=== PATIENT | male | born 1955 | race Caucasian/White ===

== ENCOUNTER → 2021-08-01 | Outpatient (CLI) | payer MEDICARE ==
--- NOTE | 2021-08-01 18:32 | Diagnostic Imaging Report ---
INDICATION: Bilateral knee pain. Time of Exam: 1:28 PM 4 views of each knee were obtained. Both knees show severe medial compartmental degenerative change with complete loss of the joint space. Right knee does have a corticated osseous density projected within the lateral compartment which could represent a loose body. There are patellofemoral degenerative changes bilaterally. No fracture, dislocation or effusion is seen. IMPRESSION: Bilateral degenerative changes without acute fracture or dislocation. There may be a loose body within the lateral compartment of the right knee. Dictated by: Dictated on workstation # [id number]
== END ==
LOC: ORTHO 13:57
PROVIDERS: ATTEND Orthopaedic Surgery
DX: M17.0 Bilateral primary osteoarthritis of knee (principal)
CPT/HCPCS: 73564; G0463; 99203

== ENCOUNTER → 2021-08-03 | Outpatient (CLI) | payer MEDICARE | LOC: ORTHO 13:45 | PROVIDERS: ATTEND Orthopaedic Surgery | DX: M17.0 Bilateral primary osteoarthritis of knee (principal) ==

== ENCOUNTER → 2022-01-03 | Outpatient (CLI) | payer MEDICARE | LOC: ORTHO 12:42 | PROVIDERS: ATTEND Orthopaedic Surgery | DX: M17.0 Bilateral primary osteoarthritis of knee (principal); E11.9 Type 2 diabetes mellitus without complications; E78.00 Pure hypercholesterolemia, unspecified; I10 Essential (primary) hypertension ==

== ENCOUNTER → 2022-05-31 | Outpatient (CLI) | payer MEDICARE | LOC: ORTHO 13:12 | PROVIDERS: ATTEND Orthopaedic Surgery | DX: M17.0 Bilateral primary osteoarthritis of knee (principal); E11.9 Type 2 diabetes mellitus without complications; I10 Essential (primary) hypertension; E78.00 Pure hypercholesterolemia, unspecified | CPT/HCPCS: 99213 ==

== ENCOUNTER 2022-08-07 14:18 | Outpatient (CLI) | payer MEDICARE ==
[~2022-08-07] VITALS: Ht 170.2 cm; Wt 120.0 kg
[2022-08-07 14:27] VITALS: BP 141/71
[2022-08-07] MEDS ORDERED: ASPI-999 PO (14:57)
[2022-08-07] MEDS ORDERED: INSU100C3 SQ (14:57)
[2022-08-07] MEDS ORDERED: LISI20TA26 PO (14:57)
[2022-08-07] MEDS ORDERED: ATOR20TA66 PO (14:57)
[2022-08-07] MEDS ORDERED: TURM500T PO (14:57)
[2022-08-07] MEDS ORDERED: HYDR25TA4 PO (14:57)
[2022-08-07] MEDS ORDERED: MAGN400T39 PO (14:57)
[2022-08-07] MEDS ORDERED: AMLO-250 PO (14:57)
[2022-08-07] MEDS ORDERED: INSU100V6 SQ ×2 (14:57)
[2022-08-07] MEDS ORDERED: CARV25TA PO (14:57)
[2022-08-07] MEDS ORDERED: ESCI-2 PO (14:57)
[2022-08-07] MEDS ORDERED: MULT200T14 PO (14:57)
[2022-08-07 16:06] LABS: BASOPHILS # (AUTO) 0.1 10^3/uL (0.0-0.1); BASOPHILS % (AUTO) 1 % (0-10); EOSINOPHILS # (AUTO) 0.6 10^3/uL (0.0-0.3); EOSINOPHILS % (AUTO) 7 % (0-10); HEMATOCRIT 36 % (40-54); HEMOGLOBIN 12.8 g/dL (13.3-17.7); LYMPHOCYTES # (AUTO) 1.3 10^3/uL (1.0-4.0); LYMPHOCYTES % (AUTO) 14 % (12-44); MEAN CORPUSCULAR HEMOGLOBIN 31 pg (25-34); MEAN CORPUSCULAR HGB CONC 36 g/dL (32-36); MEAN CORPUSCULAR VOLUME 86 fL (80-99); MONOCYTES # (AUTO) 0.7 10^3/uL (0.0-1.0); MONOCYTES % (AUTO) 8 % (0-12); NEUTROPHILS # (AUTO) 6.6 10^3/uL (1.8-7.8); NEUTROPHILS % (AUTO) 71 % (42-75); PLATELET COUNT 191 10^3/uL (130-400); WHITE BLOOD COUNT 9.3 10^3/uL (4.3-11.0)
--- NOTE | 2022-08-07 17:34 | Diagnostic Imaging Report ---
EXAMINATION: Chest 2 view HISTORY: PRE OP COMPARISON: None available. FINDINGS: Heart size and pulmonary vasculature are normal. The lungs are clear without consolidation, pleural effusion, or pneumothorax. Degenerative changes of the thoracic spine. Osseous structures are otherwise intact. IMPRESSION: 1. No acute radiographic abnormality in the chest. Dictated by: Dictated on workstation # [id number]
== END 2022-08-09 07:46 ==
LOC: PREOP 14:18
PROVIDERS: ATTEND Orthopaedic Surgery
DX: Z01.818 Encounter for other preprocedural examination (principal); M17.12 Unilateral primary osteoarthritis, left knee
CPT/HCPCS: 36415; 71046; 85025

== ENCOUNTER → 2022-08-07 | Outpatient (CLI) | payer MEDICARE ==
[~2022-08-07] MED LIST: AMLO-250 PO; ASPI-999 PO; ATOR20TA66 PO; CARV25TA PO; ESCI-2 PO; HYDR25TA4 PO; INSU100C3 SQ; INSU100V6 SQ; LISI20TA26 PO; MAGN400T39 PO; MULT200T14 PO; TURM500T PO
--- NOTE | 2022-08-07 17:15 | Diagnostic Imaging Report ---
CT EXTREMITY LOWER LEFT WO TECHNIQUE: Multiple contiguous axial images of the left knee were obtained without the use of intravenous contrast. Sagittal and coronal reformations were then performed. All CT scans use one or more of the following dose optimizing techniques: automated exposure control, MA and/or KvP adjustment based on patient size and exam type, or iterative reconstruction. INDICATION: Left knee pain. Osteoarthritis. COMPARISON: None available. FINDINGS: Pelvis: No incidental osseous or soft tissue abnormality that requires further workup. Knee: Tricompartmental osteoarthritis. No incidental osseous or soft tissue abnormality that requires further workup. Small knee joint effusion. Ankle: Osseous structures are unremarkable. Subcutaneous edema around the ankle. IMPRESSION: Tricompartmental osteoarthritis. Dictated by: Dictated on workstation # [id number]
== END ==
LOC: RAD 13:00
PROVIDERS: ATTEND Orthopaedic Surgery
DX: M17.12 Unilateral primary osteoarthritis, left knee (principal)
CPT/HCPCS: 73700

== ENCOUNTER → 2022-08-07 | Outpatient (CLI) | payer MEDICARE ==
[2022-08-07 17:45] LABS: CALCIUM 8.8 MG/DL (8.5-10.1); CREATININE SERUM 1.44 MG/DL (0.60-1.30); POTASSIUM 4.2 MMOL/L (3.6-5.0)
== END ==
LOC: ORTHO 09:00
PROVIDERS: ATTEND Orthopaedic Surgery
DX: M17.0 Bilateral primary osteoarthritis of knee (principal)
CPT/HCPCS: 36415; 80048

== ENCOUNTER → 2022-08-09 | Outpatient (CLI) | payer MEDICARE ==
[2022-08-09 11:08] LABS: BILIRUBIN,URINE NEGATIVE (NEGATIVE); CLARITY,URINE CLEAR; COLOR,URINE YELLOW; GLUCOSE, URINE (UA) NEGATIVE (NEGATIVE); KETONES,URINE NEGATIVE (NEGATIVE); LEUKOCYTE ESTERASE ,URINE NEGATIVE (NEGATIVE); NITRITE,URINE NEGATIVE (NEGATIVE); PROTEIN,URINE 2+ (NEGATIVE)
[2022-08-09 11:18] LABS: BACTERIA,URINE NEGATIVE /HPF; SQUAMOUS EPITHELIAL CELL,UR RARE /HPF; WBC,URINE RARE /HPF
== END ==
LOC: LAB 10:24
PROVIDERS: ATTEND Orthopaedic Surgery
DX: Z01.89 Encounter for other specified special examinations (principal)
CPT/HCPCS: 81000

== ENCOUNTER 2022-08-13 05:55 | Day surgery (SDC) | payer MEDICARE ==
[~2022-08-13] VITALS: Ht 170 cm; Wt 120.0 kg
[2022-08-13] VITALS (14 sets, daily range): BP systolic 117–208; BP diastolic 61–86
[2022-08-13] MEDS ORDERED: ceFAZolin INJECTION 2,000 MG in NS (IVPB) 50 ML IV ONE (06:15)
[2022-08-13] MEDS: LACTATED RINGERS 1,000 ML IV PRN ×2 (06:37→07:43)
[2022-08-13] MEDS ORDERED: MIDAZOLAM 2 MG/2 ML (VERSED) VIAL ONE (06:44)
[2022-08-13] MEDS ORDERED: BUPIVACAINE 0.5% 30 ML (SENSORCAINE) VIAL ONE (07:00)
[2022-08-13] MEDS ORDERED: ROPIVACAINE 5MG/ML 30ML VIAL ONE (07:01)
[2022-08-13] MEDS ORDERED: PROPOFOL INJECTION 50 ML IV ONE ×2 (07:07→08:29)
--- NOTE | 2022-08-13 07:15 | Progress Note-Pre Operative ---
Pre-Operative Progress Note Date of Available H&P: August 07, 2022 Date H&P Reviewed: August 13, 2022 Time H&P Reviewed: 07:05 History & Physical: H&P Reviewed, Patient Examed, No changes noted Pre-Operative Diagnosis: Left Knee Primary Osteoarthritis EMA ORLANDO MD August 13, 2022 07:15
[2022-08-13] MEDS ORDERED: TRANEXAMIC ACID 100 MG/ML 10 ML INJECTION ONE (08:08)
--- NOTE | 2022-08-13 10:09 | Operative Report - Ortho ---
Operative Report Surgeon (s)/Chicken Tender (s) Surgeon EMA ORLANDO MD Chicken Tender n/a Pre-Operative Diagnosis Left Knee Primary Osteoarthritis Post-Operative Diagnosis same Operative Report Date of Procedure: August 13, 2022 Name of Procedure Performed: Robotic Assisted Left Total Knee Arthroplasty Description & Findings After obtaining informed consent and marking the patient in the preoperative holding area, the patient did receive IV antibiotics. Patient was taken to the operating room and anesthesia was induced. Surgical timeout was taken. The left lower extremity was prepped and draped in the usual sterile fashion. Incision was made and carried down to fascia. Arthrotomy was performed on the medial side of the patella. Patella was retracted laterally and knee was flexed. Found to have circumferential osteophtye around the distal femur as well as exposed bone in the medial compartment. ACL and anterior horns of the menisci were removed. 3.2 mm pins were placed in the medial femoral condyle for the femoral array and checkpoint was placed next to the pins. 3.2 mm pins were placed in the proximal tibia and checkpoint was placed there as well. Arrays were placed and tightened into position. The femur and tibia were then registered. Osteophytes were removed. The knee was then tensioned with varus and valgus stress in extension and flexion. Measurements were captured and adjustments were made to the preoperative plan to balance the flexion and extension gaps at 20 mm. Robotic arm was brought into position and all femoral cuts as well as the tibial cut were performed. Bone blocks were removed. Lamina stock clerk self service store was placed and the remainder of the mensici as well as posterior osteophytes were removed. The knee was trialed with a size 4 femur and a size 4 tibia with a 9 mm poly trial. It was found to come out to full extension and flexed beyond 120 degrees. It was stable to varus and valgus stress throughout its range of motion. This was accepted. Knee was brought out into extension and the patella was measured at less than 20 mm of thickness. Osteophytes were removed from around the perimeter of the patella. Patella tracked well through the trochlear groove of the femur. Lug holes were drilled in the distal femur. Trial implants were removed. Tibial tray was pinned and punched. Tibial press fit guide was placed and holes were drilled. The cut bone surfaces were lavaged with pulsatile normal saline. Implants were opened and assembled on the back table. A size 4 press fit tibial component was impacted into place. A size 4 press fit femoral component was impacted into place. Tibial tray was lavaged with saline. A 9 mm thick polyethylene component was locked into placed and the locking mechanism was checked. Knee was brought into extension. Betadine soak was performed and then, the knee was irrigated with normal saline. The knee was once again trialed; found to come to full extension, flexed beyond 120 degrees, and was stable to varus and valgus stress. Tourniquet was dropped and electrocautery was used for hemostasis. Fascial layer was closed with #2 Stratafix. The subcutaneous layer was closed with 2-0 Vicryl. The skin was closed with 3-0 v-loc. Wound was dressed with steri-strips, xeroform, 4x4s, ABD, webril, and ANNELIESE wrap. Patient tolerated the procedure well and was stable to the recovery room. Anesthesia Type Spinal Estimated Blood Loss 150 mL Specimen(s) collected/removed None EMA ORLANDO MD August 13, 2022 10:09
[2022-08-13] MEDS ORDERED: ONDANSETRON 4 MG/2 ML (SDV) Z0FRAN IVP PRN (10:15)
[2022-08-13] MEDS ORDERED: INSULIN GLARGINE HUM REC ANLOG 50 UNIT SQ SCH (10:15)
[2022-08-13] MEDS ORDERED: morphine INJ 10 MG/ML 1ML (SYR OR VIAL) IVP ONE (10:15)
[2022-08-13] MEDS ORDERED: ACETAMINOPHEN 500 MG TAB (TYLENOL) PO PRN (10:15)
[2022-08-13] MEDS ORDERED: ONDANSETRON 4 MG/2 ML (SDV) Z0FRAN IV PRN (10:15)
[2022-08-13] MEDS ORDERED: INSULIN GLARGINE SQ SCH (10:15)
[2022-08-13] MEDS ORDERED: BISACODYL 5 MG (DULCOLAX) TABLET PO PRN (10:15)
[2022-08-13] MEDS ORDERED: MILK OF MAGNESIA 400 MG/5 ML 30 ML UDC PO PRN (10:15)
--- NOTE | 2022-08-13 11:08 | Diagnostic Imaging Report ---
INDICATION: Left knee arthroplasty AP and lateral views of the left knee are obtained. There has been total left knee arthroplasty. Prosthetic components appear to be in good position. There is no evidence of fracture or malalignment. Gas and fluid is seen in the knee joint. IMPRESSION: No evidence of immediate complication post recent total left knee arthroplasty. Dictated by: Dictated on workstation # [id number]
[2022-08-13] MEDS: NS IV 1000 ML 1,000 ML IV SCH ×2 (11:26→20:54)
--- NOTE | 2022-08-13 11:51 | Consultation ---
CRISTOPHER SRIVASTAVA 08/13/22 1151: HPI History of Present Illness: HPI/Chief Complaint CC: Post LKArthroplasty cares HPI: Pt underwent left knee arthroplasty this morning 2/2 OA. We are consulted for post-op medical management. Pt has no pain accept for some aching and stiffness in post-op knee. He is making urine but has not yet had a BM or flatus. He denies n/v/f/c at this time. He has not yet been cleared to ambulate or eat but has been drinking some water. Otherwise resting comfortably. Source: patient Exam Limitations: no limitations Date Seen 08/13/22 Attending Physician Chirag Beach DO PCP Admitting Physician: Attending Physician: Travis Arrieta MD Referring Physician Date of Admission Home Medications & Allergies Home Medications Reviewed patient Home Medication Reconciliation performed by pharmacy medication reconciliations ski technician and/or nursing. Patients Allergies have been reviewed. Allergies Allergies Coded Allergies No Known Drug Allergies (Unverified08/07/22) Past Ikmehvq-Pthhgp-Hvgmvl Hx Patient Social History Tobacco Use?: No Smoking Status: Never a Smoker Use of E-Cig and/or Vaping dev: No Substance use?: No Alcohol Use?: Yes Alcohol Frequency: Rarely Pt feels they are or have been: No Immunizations Up To Date First/Initial COVID19 Vaccinat: 07/27 Second COVID19 Vaccination Deepak: 08/26 Seasonal Allergies Seasonal Allergies: No Current Status Communicates: Verbally Primary Language: Nigerien Preferred Spoken Language: Nigerien Is interpretation needed?: No Implanted or Applied Medical D: Orthopedic hardware Past Medical History Surgeries: Eye Surgery, Gallbladder Currently Using CPAP: No High Cholesterol, Hypertension Sexually Transmitted Disease: No HIV/AIDS: No Gastroesophageal Reflux, Polyps, Ulcer, Gall Bladder Disease Osteoporosis Diabetes, Insulin dep Cataract Loss of Vision: Denies Hearing Impairment: Denies Anxiety Blood Disorders: No Adverse Reaction/Blood Tranf: No Review of Systems Constitutional: no symptoms reported EENTM: no symptoms reported Respiratory: no symptoms reported Cardiovascular: no symptoms reported Gastrointestinal: no symptoms reported Genitourinary: no symptoms reported Musculoskeletal: no symptoms reported (No sxs other than in post-op knee as noted in HPI), see HPI Skin: no symptoms reported Physical Exam Physical Exam Vital Signs Vital Signs - First Documented 08/13/22 06:10 Temp 36.2 Pulse 62 Resp 18 B/P (MAP) 194/85 (121) Pulse Ox 98 Capillary Refill : Less Than 3 Seconds Height, Weight, BMI Height: '" Weight: lbs. oz. kg; 41.52 BMI Method: General Appearance: No Apparent Distress, WD/WN, Obese Eyes: Bilateral Eye Normal Inspection, Bilateral Eye PERRL HEENT: PERRL/EOMI, Normal ENT Inspection, Pharynx Normal Neck: Full Range of Motion, Normal Inspection, Non Tender, Supple Respiratory: Chest Non Tender, Lungs Clear, Normal Breath Sounds, No Accessory Muscle Use, No Respiratory Distress Cardiovascular: Regular Rate, Rhythm, No Gallop, No Murmur, Normal Peripheral Pulses Gastrointestinal: Normal Bowel Sounds, No Organomegaly, No Pulsatile Mass, Non Tender, Soft Extremity: Normal Capillary Refill, Normal Inspection, Normal Range of Motion, Non Tender, No Calf Tenderness, Pedal Edema (2+ pitting edema BL (pt notes this is chronic)) Neurologic/Psychiatric: Alert, Oriented x3, No Motor/Sensory Deficits, Normal Mood/Affect Skin: Normal Color, Warm/Dry Results Results/Procedures Labs Patient resulted labs reviewed. Assessment/Plan Assessment and Plan Assess & Plan/Chief Complaint Post LKArthroplasty - surgeon to advance diet as appropriate - pain mngmt - PT/OT as indicated by surgery team DM - ISS and accuchecks HTN - resuming home norvasc, carvedilol, hctz, and lisinopril - ctm HLD - resume home statin DVT ppx - SCD's TORRIE HIDALGO DO 08/14/22 0513: Past Knwknfq-Rssliz-Lfwdzd Hx Patient Social History Marrital Status: Review of Systems Constitutional: see HPI Physical Exam Physical Exam General Appearance: Chronically ill, Obese Respiratory: Lungs Clear, Normal Breath Sounds Supervisory-Addendum Brief Verification & Attestation Participated in pt care: history, MDM, physical Personally performed: exam, history, MDM, supervision of care Care discussed with: Medical Student Procedures: n/a Results interpretation: Verified all documentation Verification and Attestation of Medical Student E/M Service A medical student performed and documented this service in my presence. I reviewed and verified all information documented by the medical student and made modifications to such information, when appropriate. I personally performed the physical exam and medical decision making. Torrie Hidalgo, August 14, 2022,05:13 CRISTOPHER SRIVASTAVA August 13, 2022 11:51 TORRIE HIDALGO DO August 14, 2022 05:13
[2022-08-13] MEDS: morphine INJ 4 MG/ML 1 ML (VIAL/SYRINGE) IVP PRN ×5 (11:56→20:52)
[2022-08-13] MEDS ORDERED: hydrALAZINE (APRESOLINE) 25 MG TAB PO PRN (13:15)
[2022-08-13] MEDS ORDERED: amLODIPine 5 MG (NORVASC) TAB PO NR (13:15)
[2022-08-13] MEDS ORDERED: PATIENT MAY USE OWN MEDS, ALL MC SCH (13:30)
--- NOTE | 2022-08-13 13:53 | Physical Therapy Evaluation ---
PT Evaluation-General Medical Diagnosis Admission Date August 13, 2022 Medical Diagnosis: left OA Onset Date: August 13, 2022 Therapy Diagnosis Therapy Diagnosis: debility Precautions Precautions/Isolations: Fall Prevention, Standard Precautions Weight Bear Status Right Lower Extremity: Right Full Weight Bearing Left Lower Extremity: Left Weight Bearing/Tolerated Referral Physician: Meenakshi Reason for Referral: Evaluation/Treatment Medical History Pertinent Medical History: HTN Current History s/p elective left TKR Reviewed History: Yes Social History Home: Single Level Current Living Status: Spouse Entry Into Home: Stairs With Railing PT Steps Into Home: 3 Prior Prior Level of Function SCALE: Activities may be completed with or without assistive devices. 1-Zuqbgtjjrp-xdvrooc completes the activity by him/herself with no assistance from a helper. 5-Set-up or Clean-up Assistance-helper sets up or cleans up; patient completes activity. [place] assists only prior to or following the activity. 4-Supervision or Touching Assistance-helper provides verbal cues and/or touching/steadying and/or contact guard assistance as patient completes activity. Assistance may be provided throughout the activity or intermittently. 3-Partial/Moderate Assistance-helper does LESS THAN HALF the effort. [place] lifts, holds or supports trunk or limbs, but provides less than half the effort. 2-Substantial/Maximal Assistance-helper does MORE THAN HALF the effort. [place] lifts or holds trunk or limbs and provides more than half the effort. 1-Bgvzarrvb-iyryob does ALL the effort. Patient does none of the effort to complete the activity. Or, the assistance of 2 or more helpers is required for the patient to complete the activity. If activity was not attempted, code reason: 7-Patient Refused. 9-Not Applicable-not attempted and the patient did not perform the activity before the current illness, exacerbation or injury. 10-Not Attempted due to Environmental Limitations-(lack of equipment, weather restraints, etc.). 88-Not Attempted due to Medical Conditions or Safety Concerns. Bed Mobility: 6 Transfers (B,C,W/C): 6 Gait: 6 Stairs: 6 Indoor Mobility (Ambulation): Independent Stairs: Independent Prior Devices Use: None PT Evaluation-Current Subjective Patient agrees to PT. Pain Numeric Pain Scale: 5-Moderate Pain Location: Left Location Body Site: Knee Pain Description: Acute Objective Patient Orientation: Normal For Age Attachments: Platt Catheter, Polar Pack, IV ROM/Strength ROM Lower Extremities right LE WFL/left LE 5-80 degrees Strength Lower Extremities right LE 5/5; left LE 4/5 grossly Integumentary/Posture Bowel Incontinence: No Bladder Incontinence: Platt Cath Posture WFL Neuromuscular (Tone, Coordination, Reflexes) grossly intact Sensory Vision: Functional Hearing: Functional Transfers Lying to Sitting/Side of Bed(Q: 4 Sit to Stand (QC): 4 Chair/Irn-ru-Eljoq Xfer(QC): 4 Gait Mode of Locomotion: Walk Anticipated Mode of Locomotion: Walk Walk 10 feet (QC): 4 Walk 50 ft with 2 Turns(QC): 4 Walk 150 ft (QC): 4 Distance: 250' Gait Assistive Device: FWW Comments/Gait Description reciprocal pattern Balance Sitting Static: Normal Sitting Dynamic: Normal Standing Static: Normal Standing Dynamic: Normal Assessment/Needs Patient will benefit from skilled PT to address functional strength and mobility to improve current LOF to safely return to home at maximum LOF. Rehab Potential: Fair PT Custodial Goals Custodial Goals PT Custodial Goals Time Frame: August 18, 2022 Roll Left & Right (QC): 6 Sit to Lying (QC): 6 Lying-Sitting on Side/Bed(QC): 6 Sit to Stand (QC): 6 Chair/Hxr-ar-Qtcro Xfer(QC): 6 Toilet Transfer (QC): 6 Walk 10 feet (QC): 6 Walk 50ft with 2 Turns (QC): 6 Walk 150 ft (QC): 6 1 Step (curb) (QC): 4 4 Steps (QC): 4 Type: Motorized PT Plan Problem List Problem List: Activity Tolerance, Functional Strength, Safety, Balance, Gait, Transfer, Bed Mobility Treatment/Plan Treatment Plan: Continue Plan of Care Treatment Plan: Bed Mobility, Education, Functional Activity Indy, Functional Strength, Gait, Safety, Therapeutic Exercise, Transfers Treatment Duration: August 18, 2022 Frequency: 11 times per week Estimated Hrs Per Day: .5 hour per day Patient and/or Family Agrees t: Yes Time Time In: 1255 Time Out: 1315 DATE: August 13, 2022 Total Billed Treatment Time: 20 Total Billed Treatment 1 visit EVModC 20 min LEELA AWAN PT August 13, 2022 13:53
[2022-08-13] MEDS: LEXAPRO 10 MG PO SCH (13:57)
--- NOTE | 2022-08-13 14:40 | Occupational Therapy Eval ---
OT Evaluation-General/PLF Medical Diagnosis Admission Date Medical Diagnosis: left OA Onset Date: August 13, 2022 Therapy Diagnosis Therapy Diagnosis: weakness Precautions Precautions/Isolations: Fall Prevention, Standard Precautions Weight Bear Status Weight Bearing Restriction: Weight Bearing/Tolerated Location Restriction: L LE Referral Physician: Meenakshi Referral Reason: Evaluation/Treatment Medical History Pertinent Medical History: HTN, OA Current History s/p LTKA Social History Home: Single Level Current Living Status: Spouse Entry Into Home: Stairs With Railing Steps Into Home: 3 ADL-Prior Level of Function SCALE: Activities may be completed with or without assistive devices. 7-Xfeznldnza-xrqztna completes the activity by him/herself with no assistance from a helper. 5-Set-up or Clean-up Assistance-helper sets up or cleans up; patient completes activity. [place] assists only prior to or following the activity. 4-Supervision or Touching Assistance-helper provides verbal cues and/or touching/steadying and/or contact guard assistance as patient completes a ctivity. Assistance may be provided throughout the activity or intermittently. 3-Partial/Moderate Assistance-helper does LESS THAN HALF the effort. [place] lifts, holds or supports trunk or limbs, but provides less than half the effort. 2-Substantial/Maximal Assistance-helper does MORE THAN HALF the effort. [place] lifts or holds trunk or limbs and provides more than half the effort. 9-Sxqtvmgaf-zanpyh does ALL the effort. Patient does none of the effort to complete the activity. Or, the assistance of 2 or more helpers is required for the patient to complete the activity. If activity was not attempted, code reason: 7-Patient Refused. 9-Not Applicable-not attempted and the patient did not perform the activity before the current illness, exacerbation or injury. 10-Not Attempted due to Environmental Limitations-(lack of equipment, weather restraints, etc.). 88-Not Attempted due to Medical Conditions or Safety Concerns. Self Care: Needed Some Help (uses pant legs to lift LES to don socks or does it for him) Functional Cognition: Independent Drive Self: Yes OT Current Status Subjective Reclined in bed w/ polar pack on LLE, agrees to therapy Mental Status/Objective Patient Orientation: Person, Place, Time, Situation Current Upper Extremity ROM BUE ROM WFLS, abdomen restricts forward flexion Upper Extremity Strength BUE +4/5, does not sustain strength w/ activity d/t fair + activity tolerance ADL-Treatment Eating (QC): 6 Oral Hygiene (QC): 5 Shower/Bathe Self (QC): 7 Upper Body Dressing (QC): 5 Lower Body Dressing (QC): 4 On/Off Footwear (QC): 2 Toileting Hygiene (QC): 4 Education OT Patient Education: Correct positioning, Modified ADL techniques, Progress toward Goal/Update tx plan, Purpose of tx/functional activities, Reviewed precautions, Rehab process, Safety issues, Transfer techniques, Use of adapted equipment Teaching Recipient: Patient Teaching Methods: Discussion Response to Teaching: Verbalize Understanding, Reinforcement Needed OT Senior Living Goals Senior Living Goals Eating (QC): 6 Oral Hygiene (QC): 6 Toileting Hygiene (QC): 6 Shower/Bathe Self (QC): 6 Upper Body Dressing (QC): 6 Lower Body Dressing (QC): 6 On/Off Footwear (QC): 6 1=Demonstrate adherence to instructed precautions during ADL tasks. 2=Patient will verbalize/demonstrate understanding of assistive devices/modifications for ADL. 3=Patient will improve strength/tolerance for activity to enable patient to perform ADL's. OT Education/Plan Problem List/Assessment Assessment: Decreased Activ Tolerance, Impaired Self-Care Skills Discharge Recommendations Plan/Recommendations: Continue POC Treatment Plan/Plan of Care Treatment,Training & Education: Yes Patient would benefit from OT for education, treatment and training to promote independence in ADL's, mobility, safety and/or upper extremity function for ADL's. Plan of Care: ADL Retraining, Functional Mobility, Group Exercise/Act as Ind, UE Funct Exercise/Act Treatment Duration: August 18, 2022 Frequency: 3 times per week (3-5 times per week) Estimated Hrs Per Day: .25 hour per day Agreement: Yes Rehab Potential: Fair Time Start Time: 12:55 Stop Time: 14:15 DATE: August 13, 2022 Total Time Billed (hr/min): 20 Billed Treatment Time EVM 20 min LEVI MANDUJANO OT August 13, 2022 14:39
[2022-08-13] MEDS: inSUlin ASPART (NovoLOG) 1 UNIT/0.01 ML (CHARGE PER UNIT) SQ SCH (16:05)
[2022-08-13] MEDS: ASPIRIN E.C. 81 MG (ECOTRIN) TAB PO SCH (17:22)
[2022-08-13] MEDS: HYDROcodone/APAP 7.5 MG/325 MG (LORTAB, LORCET PLUS) TABLET PO PRN ×2 (17:22→20:53)
[2022-08-13] MEDS: LANTUS 100 UNITS/ML VIAL SQ SCH (17:23)
[2022-08-13] MEDS: DOCUSATE SODIUM 100 MG (COLACE) CAP PO SCH (20:53)
[2022-08-13] MEDS: ceFAZolin INJECTION 2,000 MG in NS (IVPB) 50 ML IV SCH (20:54)
[2022-08-13] MEDS ORDERED: CELECOXIB 100 MG (CeleBREX) CAP PO SCH (21:00)
[2022-08-13] MEDS ORDERED: cloNIDine 0.1 MG (CATAPRES) TAB PO PRN (21:15)
[2022-08-13] MEDS: HYDROmorphone 2 MG/ML VIAL (DILAUDID) IV PRN (22:27)
[2022-08-14 03:37] VITALS: BP 142/65
[2022-08-14] MEDS: HYDROcodone/APAP 7.5 MG/325 MG (LORTAB, LORCET PLUS) TABLET PO PRN ×2 (03:37→08:43)
[2022-08-14] MEDS: HYDROmorphone 2 MG/ML VIAL (DILAUDID) IV PRN ×6 (03:37→22:54)
[2022-08-14 05:29] LABS: BASOPHILS # (AUTO) 0.1 10^3/uL (0.0-0.1); BASOPHILS % (AUTO) 1 % (0-10); EOSINOPHILS # (AUTO) 0.1 10^3/uL (0.0-0.3); EOSINOPHILS % (AUTO) 1 % (0-10); HEMATOCRIT 32 % (40-54); HEMOGLOBIN 11.2 g/dL (13.3-17.7); LYMPHOCYTES % (AUTO) 8 % (12-44); MEAN CORPUSCULAR HEMOGLOBIN 31 pg (25-34); MEAN CORPUSCULAR HGB CONC 35 g/dL (32-36); MEAN CORPUSCULAR VOLUME 87 fL (80-99); MEAN PLATELET VOLUME 9.5 fL (9.0-12.2); MONOCYTES # (AUTO) 1.5 10^3/uL (0.0-1.0); MONOCYTES % (AUTO) 12 % (0-12); NEUTROPHILS # (AUTO) 10.1 10^3/uL (1.8-7.8); NEUTROPHILS % (AUTO) 79 % (42-75); PLATELET COUNT 241 10^3/uL (130-400); WHITE BLOOD COUNT 12.8 10^3/uL (4.3-11.0)
[2022-08-14] MEDS: ceFAZolin INJECTION 2,000 MG in NS (IVPB) 50 ML IV SCH (05:29)
[2022-08-14 05:44] LABS: ALBUMIN 3.5 GM/DL (3.2-4.5); POTASSIUM 4.9 MMOL/L (3.6-5.0)
[2022-08-14 05:45] LABS: CALCIUM 8.5 MG/DL (8.5-10.1)
[2022-08-14 05:46] LABS: TOTAL PROTEIN 6.5 GM/DL (6.4-8.2)
[2022-08-14 05:48] LABS: BILIRUBIN,TOTAL 0.8 MG/DL (0.1-1.0)
[2022-08-14 05:50] LABS: CREATININE SERUM 2.44 MG/DL (0.60-1.30)
[2022-08-14] MEDS ORDERED: LANTUS 100 UNITS/ML VIAL SQ SCH (07:00)
[2022-08-14] MEDS ORDERED: MULTIVIT W/MINERALS TAB (THERAGRAN M) PO SCH (07:00)
--- NOTE | 2022-08-14 08:04 | Physical Therapy Daily Note ---
PT Daily Note-Current Subjective Patient agrees to PT. Pain Numeric Pain Scale: 5-Moderate Pain Location: Left Location Body Site: Knee Pain Description: Acute Section J - Health Conditions 1. Rarely or not at all 2. Occasionally 3. Frequently 4. Almost constantly 8. Unable to answer Pain Effect on Sleep: 1 Pain Interference with Therapy: 1 Pain Interference w/Day-to-Day: 1 Mental Status Patient Orientation: Normal For Age Transfers SCALE: Activities may be completed with or without assistive devices. 3-Nbrxjpeosl-kpfkqzr completes the activity by him/herself with no assistance from a helper. 5-Set-up or Clean-up Assistance-helper sets up or cleans up; patient completes activity. [place] assists only prior to or following the activity. 4-Supervision or Touching Assistance-helper provides verbal cues and/or touching/steadying and/or contact guard assistance as patient completes activity. Assistance may be provided throughout the activity or intermittently. 3-Partial/Moderate Assistance-helper does LESS THAN HALF the effort. [place] lifts, holds or supports trunk or limbs, but provides less than half the effort. 2-Substantial/Maximal Assistance-helper does MORE THAN HALF the effort. [place] lifts or holds trunk or limbs and provides more than half the effort. 0-Ebcztmhdm-nlvomx does ALL the effort. Patient does none of the effort to complete the activity. Or, the assistance of 2 or more helpers is required for the patient to complete the activity. If activity was not attempted, code reason: 7-Patient Refused. 9-Not Applicable-not attempted and the patient did not perform the activity before the current illness, exacerbation or injury. 10-Not Attempted due to Environmental Limitations-(lack of equipment, weather restraints, etc.). 88-Not Attempted due to Medical Conditions or Safety Concerns. Sit to Stand (QC): 6 Weight Bearing Right Lower Extremity: Right Full Weight Bearing Left Lower Extremity: Left Weight Bearing/Tolerated Gait Training Distance: 200' x 2 Walk 10 feet (QC): 6 Walk 50 ft with 2 Turns(QC): 6 Walk 150 ft (QC): 6 Walking 10ft/uneven surface-QC: 6 Gait Assistive Device: FWW steady, reciprocal pattern/antalgic Stair Training Stair Training: Handrails/: 2 handrails #of Steps: 8 1 Step (curb) (QC): 4 4 Steps (QC): 4 Stairs: Pattern: Step to SBA for initial attempt to perform stair training Exercises Supine Ex: Ankle pumps, Quad Set, Heel Slides, Straight leg raise Supine Reps: 15 (in recliner) Seated Therapy Exercises: Long arc quads Seated Reps: 15 Assessment Patient progressing with treatment plan and is able to attain 90 degrees left knee flexion AROM and 5 degrees left knee extension AAROM. Patient is up independently in room and hallway. PT Police Service Technician Goals Retirement Goals PT Retirement Goals Time Frame: August 18, 2022 Roll Left & Right (QC): 6 Sit to Lying (QC): 6 Lying-Sitting on Side/Bed(QC): 6 Sit to Stand (QC): 6 Chair/Qws-ly-Uvvaf Xfer(QC): 6 Toilet Transfer (QC): 6 Walk 10 feet (QC): 6 Walk 50ft with 2 Turns (QC): 6 Walk 150 ft (QC): 6 1 Step (curb) (QC): 4 4 Steps (QC): 4 Type: Motorized PT Plan Treatment/Plan Treatment Plan: Continue Plan of Care Treatment Plan: Bed Mobility, Education, Functional Activity Indy, Functional Strength, Gait, Safety, Therapeutic Exercise, Transfers Treatment Duration: August 18, 2022 Frequency: 11 times per week Estimated Hrs Per Day: .5 hour per day Patient and/or Family Agrees t: Yes Time Time In: 715 Time Out: 738 DATE: August 14, 2022 Total Billed Treatment Time: 23 Total Billed Treatment 1 visit EX 8 min FA 15 min LEELA AWAN PT August 14, 2022 08:04
[2022-08-14 08:23] VITALS: BP 135/78
[2022-08-14] MEDS: inSUlin ASPART (NovoLOG) 1 UNIT/0.01 ML (CHARGE PER UNIT) SQ SCH ×2 (08:35→17:32)
[2022-08-14] MEDS: DOCUSATE SODIUM 100 MG (COLACE) CAP PO SCH ×2 (08:35→21:44)
[2022-08-14] MEDS: ASPIRIN E.C. 81 MG (ECOTRIN) TAB PO SCH ×2 (08:36→17:31)
[2022-08-14] MEDS: LEXAPRO 10 MG PO SCH (08:44)
[2022-08-14] MEDS ORDERED: amLODIPine 5 MG (NORVASC) TAB PO SCH (09:00)
[2022-08-14] MEDS ORDERED: MAGNESIUM OXIDE (MAG-OX)400 MG TAB PO SCH (09:00)
[2022-08-14] MEDS ORDERED: MULTIVIT MINERALS PO SCH (09:00)
[2022-08-14] MEDS ORDERED: lisINopril 20 MG (PRINIVIL) TABLET PO SCH (09:00)
[2022-08-14] MEDS ORDERED: NON-FORMULARY MEDICATION 1 EA EA (Escitalopram Oxalate 10 MG) PO SCH (09:00)
[2022-08-14] MEDS ORDERED: FOLIC ACID PO SCH (09:00)
[2022-08-14] MEDS ORDERED: [UNRECOGNIZED DRUG - OTHER] PO SCH (09:00)
--- NOTE | 2022-08-14 09:26 | Progress Note - Ortho ---
Progress Note Subjective Date of Exam 08/14/22 Chief Complaint POD #1 L TKA HPI/Events since last exam having difficulty with pain, despite pain has been very active and walking frequently Review of Systems - Allergies: Coded Allergies: No Known Drug Allergies (Unverified , 08/07/22) Home Meds Reported Medications Turmeric Root Extract (Turmeric) 500 Mg Tablet, 500 MG PO DAILY, TAB 08/07/22 Magnesium Oxide (Magnesium) 400 Mg Magnesium Tablet, 400 MG PO DAILY, TAB 08/07/22 Folic Acid/Multivit-Minerals (Men's Multivitamin Gummies) 200 Mcg Tab.chew, 200 MCG PO DAILY, TAB 08/07/22 Aspirin (Aspirin) 81 Mg Tab.chew, 81 MG PO DAILY, TAB 08/07/22 Insulin Aspart (Novolog) 100 Unit/Ml Cartridge, 20 UNITS SQ BID WITH MEALS, EA 08/07/22 Insulin Glargine,Hum.rec.anlog (Lantus) 100 Unit/Ml Vial, 82 UNIT SQ DAILY WITH DINNER, EA 08/07/22 Insulin Glargine,Hum.rec.anlog (Lantus) 100 Unit/Ml Vial, 50 UNIT SQ DAILY WITH BREAKFAST, EA 08/07/22 Amlodipine Besylate (Amlodipine Besylate) 5 Mg Tablet, 5 MG PO DAILY, TAB 08/07/22 Hydrochlorothiazide (Hydrochlorothiazide) 25 Mg Tablet, 25 MG PO DAILY, TAB 08/07/22 Escitalopram Oxalate (Escitalopram Oxalate) 10 Mg Tablet, 10 MG PO DAILY, TAB 08/07/22 Atorvastatin Calcium (Atorvastatin Calcium) 20 Mg Tablet, 20 MG PO HS, TAB 08/07/22 Lisinopril (Lisinopril) 20 Mg Tablet, 20 MG PO DAILY, TAB 08/07/22 Carvedilol (Carvedilol) 25 Mg Tablet, 25 MG PO BID, TAB 08/07/22 Objective Exam L Knee: Dressing C/D/I, +DF of ankle, no s/s of DVT, peripheral edema currently remains same as prior to surgery Vital Signs Vital Signs Date Time Temp Pulse Resp B/P (MAP) Pulse Ox O2 Delivery O2 Flow Rate FiO2 08/14/22 08:23 35.7 71 20 135/78 (97) 96 Room Air 08/14/22 03:37 36.3 62 20 142/65 (90) 92 Room Air 08/13/22 23:55 36.4 61 18 130/61 (84) 94 Room Air 08/13/22 21:00 94 Room Air 08/13/22 19:58 36.3 68 18 176/74 (108) 95 Room Air 08/13/22 17:16 37.0 65 18 208/86 (126) 94 Room Air 08/13/22 15:57 36.8 60 18 202/83 (122) 95 Room Air 08/13/22 13:25 158/70 (99) 08/13/22 11:07 95 Room Air 08/13/22 11:00 36.5 57 18 190/86 (120) 96 Room Air 08/13/22 10:45 36.4 18 145/68 (93) 95 Room Air 08/13/22 10:45 Room Air 08/13/22 10:40 18 143/68 (93) 95 Room Air 08/13/22 10:36 Room Air 08/13/22 10:32 Room Air 08/13/22 10:31 Room Air 08/13/22 10:30 18 147/70 (95) 97 Room Air 08/13/22 10:25 Room Air 08/13/22 10:20 18 147/76 (99) 97 Room Air 08/13/22 10:15 Room Air 08/13/22 10:10 18 137/77 (97) 96 Room Air 08/13/22 10:05 Room Air 08/13/22 10:00 18 126/66 (86) 94 Room Air 08/13/22 09:54 36.2 16 117/64 (81) 95 Room Air 08/13/22 09:54 Room Air I & O 08/14/22 07:00 Intake Total 3840 ml Output Total 845 ml Balance 2995 ml Lab Results Laboratory Tests 08/13/22 13:16: Glucometer 234H 08/13/22 15:40: Glucometer 332H 08/13/22 17:14: Glucometer 329H 08/13/22 20:29: Glucometer 232H 08/14/22 04:57: White Blood Count 12.8H, Red Blood Count 3.66L, Hemoglobin 11.2L, Hematocrit 32L , Mean Corpuscular Volume 87, Mean Corpuscular Hemoglobin 31, Mean Corpuscular Hemoglobin Concent 35, Red Cell Distribution Width 13.5, Platelet Count 241, Mean Platelet Volume 9.5, Immature Granulocyte % (Auto) 0, Neutrophils (%) (Auto) 79H, Lymphocytes (%) (Auto) 8L, Monocytes (%) (Auto) 12, Eosinophils (%) (Auto) 1, Basophils (%) (Auto) 1, Neutrophils # (Auto) 10.1H, Lymphocytes # (Auto) 1.0, Monocytes # (Auto) 1.5H, Eosinophils # (Auto) 0.1, Basophils # (Auto) 0.1, Immature Granulocyte # (Auto) 0.1, Sodium Level 130L, Potassium Level 4.9, Chloride Level 100, Carbon Dioxide Level 20L, Anion Gap 10, Blood Urea Nitrogen 42H, Creatinine 2.44H, Estimat Glomerular Filtration Rate 28, BUN/Creatinine Ratio 17, Glucose Level 231H, Calcium Level 8.5, Corrected Calcium 8.9, Total Bilirubin 0.8, Aspartate Amino Transf (AST/SGOT) 24, Alanine Aminotransferase (ALT/SGPT) 11, Alkaline Phosphatase 40, Total Protein 6.5, Albumin 3.5 08/14/22 05:30: Glucometer 233H Microbiology 08/13/22 MRSA Screen - Final, Complete MRSA not isolated Imaging 2 postop views of the left knee dated 08/13/22 were reviewed from PACS and demonstrated total knee arthroplasty with components in good position without complication Assessment and Plan Assessment Left Knee Primary OA s/p TKA Problem List Left Knee Primary OA s/p TKA Plan PT/OT DVT prophyalxis Pain control Plan for home with home health tomorrow Final Diagonsis Left Knee Primary OA s/p TKA Level of the visit: Level 3 (global postop) EMA ORLANDO MD August 14, 2022 09:26
--- NOTE | 2022-08-14 10:33 | Anesthesia-Regional Post-Op ---
Regional Patient Condition Mental Status: Alert, Oriented x3 Circulation: Same as Pre-Op Headache: Absent Sensation: Full Recovery Motor Block: Absent Post Op Complications Complications None Follow Up Care/Instructions Patient Instructions None needed. Anesthesia/Patient Condition Patient is doing well, no complaints, stable vital signs, no apparent adverse anesthesia problems. No complications reported per nursing. EMA KAISER CRNA August 14, 2022 10:33
--- NOTE | 2022-08-14 10:33 | Progress Note ---
CRISTOPHER SRIVASTAVA 08/14/22 1033: Subjective Date Seen by a Provider: August 14, 2022 Time Seen by a Provider: 09:30 Subjective/Events-last exam Pt doing okay this morning. His diet has been advanced and he has been tolerating well though no BM yet. He has had <1L UOP in last 24hrs. He does not feel his knee pain is adequately managed though he was able to work with PT/OT. He denies n/v/f/c at this time. Surgical team planning to dc tomorrow. Objective Exam Last Set of Vital Signs Vital Signs Date Time Temp Pulse Resp B/P (MAP) Pulse Ox O2 Delivery O2 Flow Rate FiO2 08/14/22 08:23 35.7 71 20 135/78 (97) 96 Room Air Capillary Refill : Less Than 3 Seconds I&O Intake and Output 08/14/22 00:00 Intake Total 2090 ml Output Total 845 ml Balance 1245 ml Intake Oral 1040 ml IV Total 1050 ml Output Urine Total 845 ml Daily Weight Change No General: Alert, Oriented X3, Cooperative, No Acute Distress HEENT: Atraumatic, PERRLA Neck: Supple, No Thyromegaly Lungs: Clear to Auscultation, Normal Air Movement Heart: Regular Rate, Normal S1, Normal S2, No Murmurs Abdomen: Normal Bowel Sounds, Soft, No Tenderness, No Hepatosplenomegaly, No Masses Extremities: No Clubbing, No Cyanosis, No Edema, Normal Pulses, No Tenderness/Swelling Skin: No Rashes, No Breakdown, No Significant Lesion Results Lab Laboratory Tests 08/13/22 13:16: Glucometer 234H 08/13/22 15:40: Glucometer 332H 08/13/22 17:14: Glucometer 329H 08/13/22 20:29: Glucometer 232H 08/14/22 04:57: White Blood Count 12.8H, Red Blood Count 3.66L, Hemoglobin 11.2L, Hematocrit 32L , Mean Corpuscular Volume 87, Mean Corpuscular Hemoglobin 31, Mean Corpuscular Hemoglobin Concent 35, Red Cell Distribution Width 13.5, Platelet Count 241, M mary Platelet Volume 9.5, Immature Granulocyte % (Auto) 0, Neutrophils (%) (Auto) 79H, Lymphocytes (%) (Auto) 8L, Monocytes (%) (Auto) 12, Eosinophils (%) (Auto) 1, Basophils (%) (Auto) 1, Neutrophils # (Auto) 10.1H, Lymphocytes # (Auto) 1.0, Monocytes # (Auto) 1.5H, Eosinophils # (Auto) 0.1, Basophils # (Auto) 0.1, Immature Granulocyte # (Auto) 0.1, Sodium Level 130L, Potassium Level 4.9, Chloride Level 100, Carbon Dioxide Level 20L, Anion Gap 10, Blood Urea Nitrogen 42H, Creatinine 2.44H, Estimat Glomerular Filtration Rate 28, BUN/Creatinine Ratio 17, Glucose Level 231H, Calcium Level 8.5, Corrected Calcium 8.9, Total Bilirubin 0.8, Aspartate Amino Transf (AST/SGOT) 24, Alanine Aminotransferase (A LT/SGPT) 11, Alkaline Phosphatase 40, Total Protein 6.5, Albumin 3.5 08/14/22 05:30: Glucometer 233H 08/14/22 10:03: Glucometer 288H Microbiology 08/13/22 MRSA Screen - Final, Complete MRSA not isolated Assessment/Plan Assessment/Plan Assess & Plan/Chief Complaint Post LKArthroplasty - diet advanced, tolerating well - pain mngmt per surgery - cont to work PT/OT ELIF - Cr 2.44, unclear BL but elevated from 1.44 prior to surgery - insufficient UOP - recent surgery: likely 2/2 dehydration - cont LR - ctm DM - ISS and accuchecks HTN - resumed home norvasc, carvedilol - holding HCTZ and lisinopril with ELIF - started clonidine and hydralazine prn - ctm HLD - resume home statin DVT ppx - SCD's TORRIE HIDALGO DO 08/15/22 0504: Subjective Subjective/Events-last exam Contacted by nurse regarding low UOP Malignant HTN post op required multiple meds IVF initiated Wheezing occurred with evidence of volume overload Updated Dr Figueroa Nephrology who recommended placement of duran catheter I had held Acei and Celebrex during stay after post op morning creat 2.4 and baseline was 1.4 Attempted 1 dose of Lasix but ineffective so I ordered IVF Emily Mcmahon contacted and I received acceptance but took 7 hours to arrange EMS transport I updated Dr Arrieta Supervisory-Addendum Brief Verification & Attestation Participated in pt care: history, MDM, physical Personally performed: exam, history, MDM, supervision of care Care discussed with: Medical Student Procedures: n/a Results interpretation: Verified all documentation Verification and Attestation of Medical Student E/M Service A medical student performed and documented this service in my presence. I reviewed and verified all information documented by the medical student and made modifications to such information, when appropriate. I personally performed the physical exam and medical decision making. Torrie Hidalgo, August 15, 2022,05:01 CRISTOPHER SRIVASTAVA August 14, 2022 10:33 TORRIE HIDALGO DO August 15, 2022 05:04
[2022-08-14 11:44] VITALS: BP 97/60
--- NOTE | 2022-08-14 13:29 | Physical Therapy Progress Note ---
Therapy Progress Note Patient declined PT treatment due to extremely tired and wanting a nap. Spouse present. Patient is up independently in room and hallway. PT issued written HEP and encouraged patient and spouse to perform PRN. Both voice understanding. Plan dismissal to home tomorrow after therapy. 1 ref LEELA AWAN PT August 14, 2022 13:29
--- NOTE | 2022-08-14 14:45 | Occ Therapy Progress Note ---
Therapy Progress Note Patient request DO NOT DISTURB patient while he is sleeping. OT will return pending availability LEVI MANDUJANO OT August 14, 2022 14:45
[2022-08-14] MEDS ORDERED: FUROSEMIDE 40 MG/4 ML INJ (LASIX) IVP NR (15:00)
[2022-08-14 16:24] VITALS: BP 106/59
[2022-08-14] MEDS ORDERED: NS IV 1000 ML 1,000 ML IV SCH (17:30)
[2022-08-14] MEDS: LANTUS 100 UNITS/ML VIAL SQ SCH (17:31)
[2022-08-14 17:46] LABS: POTASSIUM 4.8 MMOL/L (3.6-5.0)
[2022-08-14 17:47] LABS: CALCIUM 8.2 MG/DL (8.5-10.1)
[2022-08-14 17:52] LABS: CREATININE SERUM 3.45 MG/DL (0.60-1.30)
[2022-08-14 19:52] VITALS: BP 133/63
[2022-08-14 23:29] VITALS: BP 110/56
== END 2022-08-15 01:30 ==
LOC: SDC 05:55 → 4TH 10:45 → SDC 08-15 01:30
PROVIDERS: ATTEND Orthopaedic Surgery
DX: M17.0 Bilateral primary osteoarthritis of knee (principal); E66.01 Morbid (severe) obesity due to excess calories; Z68.41 Body mass index [BMI] 40.0-44.9, adult
CPT/HCPCS: 27447; 73560; 80048; 80053; 82947 ×2; 85025; 87081; 94664; 97110; 97162; 97166; 97530; C1713 ×2; C1776 ×3; 36415

== ENCOUNTER → 2022-08-29 | Outpatient (CLI) | payer MEDICARE | LOC: ORTHO 10:16 | PROVIDERS: ATTEND Orthopaedic Surgery | DX: Z47.89 Encounter for other orthopedic aftercare (principal); M17.0 Bilateral primary osteoarthritis of knee ==

== ENCOUNTER → 2022-10-02 | Outpatient (CLI) | payer MEDICARE ==
--- NOTE | 2022-10-02 17:30 | Diagnostic Imaging Report ---
INDICATION: Knee pain. 3 views were obtained. FINDINGS: There are postsurgical changes of a left knee arthroplasty. The hardware is in satisfactory position. There is no loosening. There is no fracture or dislocation. There is no joint effusion. The soft tissues are unremarkable. IMPRESSION: Stable left knee arthroplasty. Dictated by: Dictated on workstation # [id number]
== END ==
LOC: ORTHO 13:09
PROVIDERS: ATTEND Orthopaedic Surgery
DX: M25.562 Pain in left knee (principal); Z96.652 Presence of left artificial knee joint
CPT/HCPCS: 73560

== ENCOUNTER → 2022-11-01 | Outpatient (CLI) | payer MEDICARE | LOC: ORTHO 12:33 | PROVIDERS: ATTEND Orthopaedic Surgery | DX: Z47.89 Encounter for other orthopedic aftercare (principal); M17.0 Bilateral primary osteoarthritis of knee; Z96.651 Presence of right artificial knee joint | CPT/HCPCS: 20610 ==